=== PATIENT | female | born 1965 | race African-American/Black ===

== ENCOUNTER 2016-10-09 11:19 | Emergency (ER) | payer OTHER, MEDICAID ==
[~2016-10-09] VITALS: Ht 165.1 cm; Wt 98.4 kg
[~2016-10-09 11:19] MED LIST: AMLO5TAB2 PO; BENA5TAB5 PO; COLC0.6T56 PO; GLIM4TAB42 PO; HYDR-4663 PO; HYDR25TA4 PO; INSUINJ37 SUBCUT; Ibuprofen Micronized PO; LANS30CA63 PO; LOR05T PO; METF-370 PO
[2016-10-09 12:30] VITALS: BP 157/95
== END 2016-10-09 14:18 | disposition home or self-care (01) ==
LOC: ER 11:19
DX: S80.01XA Contusion of right knee, initial encounter (principal); M19.90 Unspecified osteoarthritis, unspecified site; E11.9 Type 2 diabetes mellitus without complications; I10 Essential (primary) hypertension; Z79.899 Other long term (current) drug therapy; Z79.4 Long term (current) use of insulin; W22.8XXA Striking against or struck by other objects, initial encounter; Y93.89 Activity, other specified; Y99.8 Other external cause status; Y92.89 Other specified places as the place of occurrence of the external cause
CPT/HCPCS: 29505; 73560

== ENCOUNTER 2020-12-27 10:49 | Emergency (ER) | payer OTHER, MEDICAID ==
[~2020-12-27] VITALS: Ht 165.1 cm; Wt 82.6 kg
[~2020-12-27 10:49] MED LIST changes: +AMLO-489 PO; -AMLO5TAB2 PO; -HYDR-4663 PO; +HYDR-4833 PO; +LANS30CA57 PO; -LANS30CA63 PO; -LOR05T PO; +LORA0.5T20 PO
[2020-12-27 13:18] VITALS: BP 160/66
[2020-12-27] MEDS ORDERED: MORPHINE SULFATE INJECTION 2 MG/ML SYRG IM ONE (14:30)
[2020-12-27] MEDS ORDERED: ONDANSETRON ODT 4 MG TAB PO ONE (14:30)
== END 2020-12-27 15:33 | disposition home or self-care (01) ==
LOC: ER 10:49
DX: S16.1XXA Strain of muscle, fascia and tendon at neck level, initial encounter (principal); R51.9 Headache, unspecified; H61.21 Impacted cerumen, right ear; I10 Essential (primary) hypertension; E11.9 Type 2 diabetes mellitus without complications; X58.XXXA Exposure to other specified factors, initial encounter; Y93.89 Activity, other specified; Y92.89 Other specified places as the place of occurrence of the external cause; Y99.8 Other external cause status
CPT/HCPCS: 70450; 72125; 96372; 99285; J2270; Q0162

== ENCOUNTER 2021-08-21 19:55 | Emergency (ER) | payer OTHER, MEDICAID ==
[~2021-08-21] VITALS: Ht 167.6 cm; Wt 81.6 kg
[~2021-08-21 19:55] MED LIST changes: -BENA5TAB5 PO; +BENA5TAB9 PO
[2021-08-21 19:56] VITALS: BP 135/69
[2021-08-21] MEDS ORDERED: KETOROLAC TROMETH 60MG/2ML VIAL IM ONE (20:15)
== END 2021-08-21 22:53 | disposition home or self-care (01) ==
LOC: ER 20:00
DX: S39.012A Strain of muscle, fascia and tendon of lower back, initial encounter (principal); M54.50 Low back pain, unspecified; E11.9 Type 2 diabetes mellitus without complications; I10 Essential (primary) hypertension; Z88.6 Allergy status to analgesic agent; X58.XXXA Exposure to other specified factors, initial encounter; Y93.89 Activity, other specified; Y92.89 Other specified places as the place of occurrence of the external cause; Y99.8 Other external cause status
CPT/HCPCS: 72131; 93971; 96372; 99284; J1885